=== PATIENT | female | born 1945 | race Caucasian/White ===

== ENCOUNTER → 2017-07-12 16:45 | Outpatient (CLI) | payer MEDICARE, OTHER ==
[2014-07-04 07:45] VITALS: BMI 30.9
[~2017-07-12 16:45] MED LIST: ASPIRIN EC81 M1 PO; BENICAR HCT 40-1 TA1 PO; PLAVIX75 MG PO; PRAVACHOL20 MG PO; TOPROL XL50 MG PO
== END | disposition home or self-care (01) ==
LOC: D.MAMMO 13:00
DX: Z12.31 Encounter for screening mammogram for malignant neoplasm of breast (principal)

== ENCOUNTER → 2018-07-25 12:39 | Outpatient (CLI) | payer MEDICARE, OTHER ==
[2014-07-04 07:45] VITALS: BMI 30.9
== END | disposition home or self-care (01) ==
LOC: D.RAD 12:39
PROVIDERS: ATTEND Urology
DX: Z87.442 Personal history of urinary calculi (principal)

== ENCOUNTER → 2018-08-08 14:39 | Outpatient (CLI) | payer MEDICARE, OTHER ==
[2014-07-04 07:45] VITALS: BMI 30.9
== END | disposition home or self-care (01) ==
LOC: D.CT 14:39
PROVIDERS: ATTEND Urology
DX: Z87.442 Personal history of urinary calculi (principal)

== ENCOUNTER → 2018-09-12 08:05 | Outpatient (CLI) | payer MEDICARE, OTHER ==
[2014-07-04 07:45] VITALS: BMI 30.9
[2018-09-12 08:52] LABS: ALBUMIN 3.7 g/dL (3.4-5.0); BILIRUBIN - DIRECT 0.16 mg/dL (0.00-0.30); BILIRUBIN - INDIRECT 0.63 mg/dL (0.00-1.00); BILIRUBIN - TOTAL 0.79 mg/dL (0.2-1.3); PROTEIN - SERUM 7.4 g/dL (6.4-8.2)
[2018-09-13 07:18] LABS: HEPATITIS C ANTIBODY <0.1 S/CO RAT (0.0-0.9)
== END | disposition home or self-care (01) ==
LOC: D.US 08:05
PROVIDERS: ATTEND Internal Medicine Gastroenterology
DX: R16.0 Hepatomegaly, not elsewhere classified (principal)

== ENCOUNTER 2019-01-28 10:00 | Outpatient (CLI) | payer MEDICARE, OTHER ==
[2014-07-04 07:45] VITALS: BMI 30.9
== END 2019-01-28 23:59 | disposition home or self-care (01) ==
LOC: D.MAMMO 10:00
PROVIDERS: ATTEND Family Medicine
DX: Z12.31 Encounter for screening mammogram for malignant neoplasm of breast (principal)